=== PATIENT | male | born 1985 | race American Indian/Alaskan Native ===

== ENCOUNTER 2021-03-18 17:36 | Emergency (ER) | payer SELFPAY ==
[2021-03-18] MEDS ORDERED: SODIUM CHLORIDE 0.9% 1000 ML 1,000 ML IV ONE (18:32)
[2021-03-18] MEDS ORDERED: ONDANSETRON 4 MG/2 ML INJ IV ONE ×2 (18:32→20:50)
[2021-03-18] MEDS ORDERED: HYDROmorphone 2 MG/1 ML INJ IV ONE (18:48)
--- NOTE | 2021-03-18 18:49 | Emergency Department Report ---
ED N/V/D HPI - General Chief complaint: Nausea/Vomiting/Diarrhea Stated complaint: VOMITING PUI?: No Time Seen by Provider: 03/18/21 18:42 Source: patient, EMS Mode of arrival: Wheelchair Limitations: No Limitations - History of Present Illness Initial comments: Patient is a 36-year-old male presents emergency room with complaints of severe abdominal pain and nausea vomiting. Patient dates his symptoms started this morning. He states he has eaten since yesterday. Patient states his pain is generalized. Patient states he is having mostly right lower quadrant pain though. Patient states his pain is better with rest. Patient dates his pain is worse with movement, vomiting, eating and palpation. Patient denies fever c hills. Patient denies blood in his vomitus. Patient denies diarrhea. Patient states his symptoms are worsening. Patient denies recent travel. Patient denies recent international travel. Patient denies exposure to the novel coronavirus. Patient denies sick contacts. Patient denies fever and chills. Patient denies cough. Patient denies diarrhea. Patient denies coming in contact with anybody with symptoms of the novel coronavirus. MD complaint: nausea, vomiting, abdominal pain -: Sudden Description of Vomiting: watery Associated Abdominal Pain: Yes Location: diffuse, RLQ Radiation: none Severity: severe Pain Scale: 10 Quality: stabbing Consistency: constant Improves with: rest Worsens with: eating, vomiting, movement Associated Symptoms: nausea/vomiting. denies: myalgias, chest pain, cough, diaphoresis, fever/chills, headaches, loss of appetite, malaise, rash, dysuria, shortness of breath, syncope, weakness - Related Data Previous Rx's Medication Instructions Recorded Last Taken Type Acetaminophen/Codeine [Tylenol 1 tab PO Q4H PRN #10 tab 03/18/21 Unknown Rx /Codeine # 3 tab] Ciprofloxacin HCl 500 mg PO BID 10 Days #20 tablet 03/18/21 Unknown Rx Ondansetron [Zofran Odt] 4 mg PO Q6HR PRN #15 tab.rapdis 03/18/21 Unknown Rx Allergies Allergy/AdvReac Type Severity Reaction Status Date / Time No Known Allergies Allergy Unverified 03/18/21 17:51 ED Review of Systems ROS: Stated complaint: VOMITING Other details as noted in HPI Constitutional: denies: chills, fever Eyes: denies: eye pain, eye discharge, vision change ENT: denies: ear pain, throat pain Respiratory: denies: cough, shortness of breath, wheezing Cardiovascular: denies: chest pain, palpitations Endocrine: no symptoms reported Gastrointestinal: as per HPI, abdominal pain, nausea, vomiting. denies: diarrhea Genitourinary: denies: urgency, dysuria Musculoskeletal: denies: back pain, joint swelling, arthralgia Skin: denies: rash, lesions Neurological: denies: headache, weakness, paresthesias Psychiatric: denies: anxiety, depression Hematological/Lymphatic: denies: easy bleeding, easy bruising ED Past Medical Hx - Past Medical History Previous Medical History?: Yes Hx Asthma: Yes - Surgical History Past Surgical History?: No - Family History Family history: no significant - Social History Smoking Status: Never Smoker Substance Use Type: Alcohol, Marijuana - Medications Home Medications: Home Medications Medication Instructions Recorded Confirmed Last Taken Type Acetaminophen/Codeine [Tylenol 1 tab PO Q4H PRN #10 tab 03/18/21 Unknown Rx /Codeine # 3 tab] Ciprofloxacin HCl 500 mg PO BID 10 Days #20 tablet 03/18/21 Unknown Rx Ondansetron [Zofran Odt] 4 mg PO Q6HR PRN #15 tab.rapdis 03/18/21 Unknown Rx ED Physical Exam - General Limitations: No Limitations General appearance: alert, in no apparent distress - Head Head exam: Present: atraumatic, normocephalic - Eye Eye exam: Present: normal appearance - ENT ENT exam: Present: mucous membranes moist - Neck Neck exam: Present: normal inspection - Respiratory Respiratory exam: Present: normal lung sounds bilaterally. Absent: respiratory distress - Cardiovascular Cardiovascular Exam: Present: regular rate, normal rhythm. Absent: systolic murmur, diastolic murmur, rubs, gallop - GI/Abdominal GI/Abdominal exam: Present: soft, tenderness (Generalized tenderness but tenderness greater in the right lower quadrant.), normal bowel sounds - Rectal Rectal exam: Present: deferred - Extremities Exam Extremities exam: Present: normal inspection - Back Exam Back exam: Present: normal inspection - Neurological Exam Neurological exam: Present: alert, oriented X3 - Psychiatric Psychiatric exam: Present: normal affect, normal mood - Skin Skin exam: Present: warm, dry, intact, normal color. Absent: rash ED Course Vital Signs 03/18/21 03/19/21 17:57 00:30 Pulse Rate 69 72 Respiratory 20 16 Rate Blood Pressure 130/65 141/68 [Right] O2 Sat by Pulse 100 100 Oximetry - Reevaluation(s) Reevaluation #1: Patient states his nausea is better. He states his pain is better. I discussed all results and clinical findings with patient. I discussed plan of care with patient. Patient agrees with plan of care. Patient is stable for discharge. Patient will be discharged home. Patient given discharge instructions. Patient voiced understanding of discharge instructions. 03/18/21 22:30 ED Medical Decision Making - Lab Data Result diagrams: 03/18/21 18:48 03/18/21 18:48 - Radiology Data Radiology results: report reviewed CT OF THE ABDOMEN AND PELVIS WITH INTRAVENOUS CONTRAST INDICATION / CLINICAL INFORMATION: Abdominal pain with nausea and vomiting. TECHNIQUE: The patient received 100 cc Omnipaque [address] scans at this location are performed using CT dose reduction for ALARA by means of automated exposure control. COMPARISON: None available. FINDINGS: ABDOMEN: There is mild diffuse fatty infiltration of the liver without focal lesion. The gallbladder, bile ducts, pancreas, spleen, adrenal glands and kidneys demonstrate no significant abnormality. I see no evidence of bowel obstruction, wall thickening or free air. No adenopathy is present. The lung bases are unremarkable. PELVIS: The distal ureters, urinary bladder, prostate gland and seminal vesicles are normal. A normal appendix is present and there is no evidence of diverticulitis. No abnormal mass or fluid collection is seen. I do not identify a hernia. No acute osseous abnormality is present. IMPRESSION: No acute abnormality is identified. - Medical Decision Making Patient is a 36-year-old male who presents emergency room with complaints of nausea vomiting and abdominal pain. Patient had labs done which showed an elevated WBC. Patient's exam showed right lower quadrant tenderness. Patient had a CT scan of the abdomen to rule out appendicitis. Patient CT scan was negative for acute findings. Patient given initial dose of Zofran and Dilaudid and improved slightly that his nausea vomiting and pain returned. Patient was given a second dose of Zofran and Dilaudid and the patient responded well. Patient tolerated p.o. intake. Patient is stable for discharge. Patient clinical findings are consistent with gastroenteritis, abdominal pain and nausea vomiting. Patient stable for discharge. Patient be discharged home with Cipro and Zofran and pain meds. Patient does not require any further emergency medical services. Patient does not require inpatient services. Patient stable for discharge. Patient discharged home. - Differential Diagnosis Abdominal pain, appendicitis, gastroenteritis, colitis, nausea vomiting Critical care attestation.: If time is entered above; I have spent that time in minutes in the direct care of this critically ill patient, excluding procedure time. ED Disposition Clinical Impression: Gastroenteritis Abdominal pain Qualifiers: Abdominal location: generalized Qualified Code(s): R10.84 - Generalized abdominal pain Nausea & vomiting Qualifiers: Vomiting type: unspecified Vomiting Intractability: non-intractable Qualified Code(s): R11.2 - Nausea with vomiting, unspecified Disposition: TO HOME OR SELFCARE Is pt being admited?: No Does the pt Need Aspirin: No Condition: Stable Instructions: Viral Gastroenteritis, Adult, [id number], Food Choices to Help Relieve Diarrhea, Adult, Abdominal Pain, Adult, [id number], Nausea and Vomit ing, Adult Additional Instructions: Patient to follow-up with primary care in 2 to 3 days. Patient to eat a brat diet. Patient to rest. Patient to increase water. Patient to take Tylenol or ibuprofen as needed for pain. Patient to take meds as directed. Patient to ret urn to the ER if condition worsens, changes or new symptoms arise. Prescriptions: Ciprofloxacin HCl 500 mg PO BID 10 Days #20 tablet Acetaminophen/Codeine [Tylenol /Codeine # 3 tab] 1 tab PO Q4H PRN #10 tab PRN Reason: Pain , Severe (7-10) Ondansetron [Zofran Odt] 4 mg PO Q6HR PRN #15 tab.rapdis PRN Reason: Nausea And Vomiting Referrals: PRIMARY CARE, [Primary Care Provider] - 2-3 Days Time of Disposition: 22:18
[2021-03-18 18:57] LABS: Basophils # (Auto) 0.1 K/mm3 (0.0-0.1); Basophils % (Auto) 0.5 % (0.0-1.8); Eosinophils # (Auto) 0.1 K/mm3 (0.0-0.4); Eosinophils % (Auto) 0.6 % (0.0-4.3); Hematocrit 47.4 % (35.5-45.6); Lymphocytes # (Auto) 1.2 K/mm3 (1.2-5.4); Lymphocytes % (Auto) 7.2 % (13.4-35.0); Mean Corpuscular HGB Conc 34 % (32-34); Mean Corpuscular Volume 96 fl (84-94); Monocytes # (Auto) 0.9 K/mm3 (0.0-0.8); Monocytes % (Auto) 5.7 % (0.0-7.3); Platelet Count 353 K/mm3 (140-440); Red Blood Count 4.93 M/mm3 (3.65-5.03); Red Cell Distribution Width 13.2 % (13.2-15.2)
[2021-03-18 19:53] LABS: Alanine Aminotransferase 28 units/L (7-56); Albumin 5.1 g/dL (3.9-5); BUN/Creatinine Ratio 10; Blood Urea Nitrogen 11 mg/dL (9-20); Calcium 9.9 mg/dL (8.4-10.2); Hemolysis Index 18
[2021-03-18] MEDS ORDERED: HYDROmorphone 1 MG/1 ML INJ IV ONE (20:50)
--- NOTE | 2021-03-18 20:52 | Cat Scan Report ---
CT OF THE ABDOMEN AND PELVIS WITH INTRAVENOUS CONTRAST INDICATION / CLINICAL INFORMATION: Abdominal pain with nausea and vomiting. TECHNIQUE: The patient received 100 cc Omnipaque [address] scans at this location are performed using CT dose reduction for ALARA by means of automated exposure control. COMPARISON: None available. FINDINGS: ABDOMEN: There is mild diffuse fatty infiltration of the liver without focal lesion. The gallbladder, bile ducts, pancreas, spleen, adrenal glands and kidneys demonstrate no significant abnormality. I s ee no evidence of bowel obstruction, wall thickening or free air. No adenopathy is present. The lung bases are unremarkable. PELVIS: The distal ureters, urinary bladder, prostate gland and seminal vesicles are normal. A normal appendix is present and there is no evidence of diverticulitis. No abnormal mass or fluid collection is seen. I do not identify a hernia. No acute osseous abnormality is present. IMPRESSION: No acute abnormality is identified. Signer Name: Mihai Méndez MD Signed: 03/18/2021 8:47 PM Workstation Name: [id number]
[2021-03-19 00:52] VITALS: BP 141/68
== END 2021-03-19 00:51 | disposition home or self-care (01) ==
LOC: ED 17:36
DX: K52.9 Noninfective gastroenteritis and colitis, unspecified (principal); R10.31 Right lower quadrant pain; R11.2 Nausea with vomiting, unspecified; F12.90 Cannabis use, unspecified, uncomplicated; J45.909 Unspecified asthma, uncomplicated; Z79.899 Other long term (current) drug therapy
CPT/HCPCS: 36415; 74177; 80053; 83690; 85025; 96361; 96374; 96375; 96376; 99284; J1170; J2405; J7030; Q9967

== ENCOUNTER 2022-03-21 21:01 | Emergency (ER) | payer BC ==
[2022-03-21] MEDS ORDERED: ONDANSETRON 4 MG ODT TAB PO ONE (21:34)
[2022-03-22] MEDS ORDERED: ONDANSETRON 4 MG/2 ML INJ IV ONE (03:57)
[2022-03-22] MEDS ORDERED: SODIUM CHLORIDE 0.9% 1000 ML 1,000 ML IV ONE (03:57)
[2022-03-22] MEDS ORDERED: MORPHINE 4 MG/1 ML INJ IV ONE (03:57)
[2022-03-22] MEDS ORDERED: diphenhydrAMINE 50 MG/ML VIAL IV ONE (03:57)
[2022-03-22] MEDS ORDERED: METOCLOPRAMIDE 10 MG/2 ML INJ IV ONE (03:57)
[2022-03-22 04:41] LABS: Alanine Aminotransferase 28 units/L (7-56); Albumin 4.6 g/dL (3.9-5); BUN/Creatinine Ratio 13; Blood Urea Nitrogen 14 mg/dL (9-20); Calcium 9.5 mg/dL (8.4-10.2); Hemolysis Index 17
[2022-03-22 04:42] LABS: Basophils # (Auto) 0.2 K/mm3 (0.0-0.1); Basophils % (Auto) 1.6 % (0.0-1.8); Hematocrit 39.6 % (35.5-45.6); Hemoglobin 12.9 gm/dl (11.8-15.2); Lymphocytes # (Auto) 0.8 K/mm3 (1.2-5.4); Lymphocytes % (Auto) 6.2 % (13.4-35.0); Mean Corpuscular HGB Conc 33 % (32-34); Mean Corpuscular Volume 93 fl (84-94); Monocytes # (Auto) 0.7 K/mm3 (0.0-0.8); Monocytes % (Auto) 5.2 % (0.0-7.3); Platelet Count 337 K/mm3 (140-440); Red Blood Count 4.27 M/mm3 (3.65-5.03); Red Cell Distribution Width 13.9 % (13.2-15.2)
--- NOTE | 2022-03-22 06:46 | Emergency Department Report ---
ED N/V/D HPI - General Chief complaint: Nausea/Vomiting/Diarrhea Stated complaint: NAUSEA, VOMITING, DIARRHEA Time Seen by Provider: 03/22/22 03:34 Source: patient, EMS Mode of arrival: Ambulatory Limitations: No Limitations - History of Present Illness Initial comments: 37-year-old male with a history gastritis presents emergency department complaining of having an onset of nausea vomiting with abdominal pain followed by a night of excessive alcohol drinking. Reports no hemoptysis no hematemesis hematochezia, no fever, chills, sweats pain is dull and crampy across the abdomen radiating up the chest with a burning sensation and sour taste upon vo miting. MD complaint: nausea, vomiting, abdominal pain -: days(s) (1) Description of Vomiting: food contents, bilious Associated Abdominal Pain: Yes Location: epigastric Severity: mild, moderate Quality: aching, sharp Consistency: constant Improves with: none Worsens with: none Associated Symptoms: cough, loss of appetite, nausea/vomiting. denies: chest pain, diaphoresis - Related Data Previous Rx's Medication Instructions Recorded Last Taken Type Acetaminophen/Codeine [Tylenol 1 tab PO Q4H PRN #10 tab 03/18/21 Unknown Rx /Codeine # 3 tab] Ciprofloxacin HCl 500 mg PO BID 10 Days #20 tablet 03/18/21 Unknown Rx Famotidine [Pepcid] 40 mg PO QHS #20 03/22/22 Unknown Rx Ondansetron [Zofran ODT TAB] 4 mg PO Q6HR PRN #15 tab.rapdis 03/22/22 Unknown Rx Allergies Allergy/AdvReac Type Severity Reaction Status Date / Time No Known Allergies Allergy Unverified 03/18/21 17:51 ED Review of Systems ROS: Stated complaint: NAUSEA, VOMITING, DIARRHEA Other details as noted in HPI Comment: All other systems reviewed and negative ED Past Medical Hx - Past Medical History Hx Asthma: Yes - Social History Smoking Status: Never Smoker Substance Use Type: Alcohol, Marijuana - Medications Home Medications: Home Medications Medication Instructions Recorded Confirmed Last Taken Type Acetaminophen/Codeine [Tylenol 1 tab PO Q4H PRN #10 tab 03/18/21 Unknown Rx /Codeine # 3 tab] Ciprofloxacin HCl 500 mg PO BID 10 Days #20 tablet 03/18/21 Unknown Rx Famotidine [Pepcid] 40 mg PO QHS #20 03/22/22 Unknown Rx Ondansetron [Zofran ODT TAB] 4 mg PO Q6HR PRN #15 tab.rapdis 03/22/22 Unknown Rx ED Physical Exam - General Limitations: No Limitations General appearance: alert, in no apparent distress - Head Head exam: Present: atraumatic, normocephalic - Eye Eye exam: Present: normal appearance, PERRL, EOMI - ENT ENT exam: Present: mucous membranes moist - Neck Neck exam: Present: normal inspection - Respiratory Respiratory exam: Present: normal lung sounds bilaterally. Absent: respiratory distress - Cardiovascular Cardiovascular Exam: Present: regular rate, normal rhythm. Absent: systolic murmur, diastolic murmur, rubs, gallop - GI/Abdominal GI/Abdominal exam: Present: soft, tenderness (Vague tenderness to the epigastric region. No masses appreciated. No abdominal tenderness to McBurney's, no Dorantes sign. No Rovsing, no tinnitus, no [place] sign, no Harrington Hankins's), normal bowel sounds - Rectal Rectal exam: Present: deferred - Extremities Exam Extremities exam: Present: normal inspection, normal capillary refill - Back Exam Back exam: Present: normal inspection. Absent: CVA tenderness (R), CVA tenderness (L), muscle spasm, paraspinal tenderness - Neurological Exam Neurological exam: Present: alert, oriented X3, CN II-XII intact, normal gait - Psychiatric Psychiatric exam: Present: normal affect, normal mood. Absent: anxious, flat affect, manic - Skin Skin exam: Present: warm, dry, intact, normal color. Absent: rash, cyanosis, diaphoretic, erythema ED Course Vital Signs 03/21/22 03/22/22 21:04 04:20 Temperature 98.9 F Pulse Rate 90 Respiratory 16 18 Rate Blood Pressure 130/88 [Right] O2 Sat by Pulse 97 Oximetry ED Medical Decision Making - Lab Data Result diagrams: 03/22/22 04:06 03/22/22 04:06 Critical care attestation.: If time is entered above; I have spent that time in minutes in the direct care of this critically ill patient, excluding procedure time. ED Disposition Clinical Impression: Vomiting, Alcoholic gastritis Disposition: 01 HOME / SELF CARE / HOMELESS Is pt being admited?: No Does the pt Need Aspirin: No Condition: Stable Instructions: Vomiting, Adult, Nausea and Vomiting, Adult, Nausea and Vomiting, Adult, [id number], Gastritis, Adult, [id number]-[id number], Gastritis, Adult Prescriptions: Famotidine [Pepcid] 40 mg PO QHS #20 Ondansetron [Zofran ODT TAB] 4 mg PO Q6HR PRN #15 tab.rapdis PRN Reason: Nausea And Vomiting
[2022-03-22 07:24] VITALS: BP 118/67
--- NOTE | 2022-03-22 11:47 | Cat Scan Report ---
CT ABDOMEN AND PELVIS WITH CONTRAST INDICATION / CLINICAL INFORMATION: Nausea, Vomiting and Diarrhea. TECHNIQUE: Axial CT images were obtained through the abdomen and pelvis after 100 cc Omnipaque [address] scans at this location are performed using CT dose reduction for ALARA by means of automated exposure control. COMPARISON: None available. FINDINGS: LOWER CHEST: No significant abnormality of the imaged chest. LIVER: No focal lesion. No acute findings. GALLBLADDER / BILE DUCTS: No significant abnormality. Biliary ducts grossly unremarkable. SPLEEN: No significant abnormality. PANCREAS: No significant abnormality. ADRENALS: No significant abnormality. KIDNEYS/URETERS: No stones or hydronephrosis. No solid renal lesion. STOMACH / DUODENUM / SMALL BOWEL: The stomach, duodenum, and small bowel demonstrate no significant a bnormality. No specific abnormality of the mesentery demonstrated. COLON: No significant abnormality. APPENDIX: No significant abnormality. PERITONEUM: No free air or free fluid are present within the abdomen or pelvis. LYMPH NODES: No significant adenopathy. AORTA / ARTERIES: No significant abnormality. IVC / VEINS: No significant abnormality. URINARY BLADDER: No significant abnormality. REPRODUCTIVE ORGANS: No significant abnormality. ADDITIONAL ABDOMINAL/PELVIC FINDINGS: None. SKELETAL SYSTEM: No significant abnormality. IMPRESSION: 1. No imaging findings to suggest etiology of the provided symptoms. Signer Name: Gustavo Wellington II, MD Signed: 03/22/2022 5:47 AM Workstation Name: [id number]
== END 2022-03-22 07:05 | disposition home or self-care (01) ==
LOC: ED 21:01
DX: R11.2 Nausea with vomiting, unspecified (principal); K29.20 Alcoholic gastritis without bleeding; F12.90 Cannabis use, unspecified, uncomplicated
CPT/HCPCS: 36415; 74177; 80053; 83690; 85025; 96361; 96374; 96375; 99284; J1200; J2270; J2405; J2765; J7030; Q9967; 80320; J3490; G0480; Q0162